=== PATIENT | female | born 1980 | race Caucasian/White ===

== ENCOUNTER 2020-10-24 21:04 | Emergency (ER) | payer SELFPAY ==
[2020-10-24 22:17] LABS: HEMOGLOBIN 14.4 gm/dl (12.3-15.3); RED BLOOD COUNT 4.45 M/UL (4.00-5.10); WHITE BLOOD COUNT 5.7 K/UL (4.5-11.0)
[2020-10-24 22:53] LABS: BUN/CREATININE RATIO 8 (0-10)
[2020-10-25] MEDS ORDERED: ASPIRIN CHEWABL81 MG PO (03:15)
[2020-10-25] MEDS ORDERED: ZITHROMAX250 MG PO (03:15)
[2020-10-25] MEDS ORDERED: DECADRON6 MG PO (03:15)
[2020-10-25] MEDS ORDERED: ZOFRAN ODT 4 MG4 MG GT (06:23)
== END 2020-10-25 07:19 | disposition home or self-care (01) ==
LOC: ER1 21:04
PROVIDERS: Physician Assistant
DX: Z23 Encounter for immunization (principal); U07.1 COVID-19; J12.82 Pneumonia due to coronavirus disease 2019; I10 Essential (primary) hypertension
CPT/HCPCS: 36600; 71045; 80053; 82550; 82553; 82803; 83615; 83874; 84484; 85025; 86140; 93005; 99285; J2405; Q0243; Q9967; U0002